=== PATIENT | male | born 1995 | race Caucasian/White ===

== ENCOUNTER 2017-09-28 16:44 | Emergency (ER) | payer OTHER ==
[2017-09-28 16:50] VITALS: BP 141/85
[2017-09-28] MEDS ORDERED: IBUPROFEN 800 MG TABLET. PO ONE (17:30)
[2017-09-28] MEDS ORDERED: IBUP800T19 PO (17:44)
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
== END 2017-09-28 18:05 | disposition home or self-care (01) ==
LOC: ER 16:44
DX: S62.394A Other fracture of fourth metacarpal bone, right hand, initial encounter for closed fracture (principal); S62.326A Displaced fracture of shaft of fifth metacarpal bone, right hand, initial encounter for closed fracture; F17.210 Nicotine dependence, cigarettes, uncomplicated; F12.10 Cannabis abuse, uncomplicated; Z71.6 Tobacco abuse counseling; W22.01XA Walked into wall, initial encounter; Y93.89 Activity, other specified; Y99.8 Other external cause status; Y92.89 Other specified places as the place of occurrence of the external cause
CPT/HCPCS: 29125; 73130; 99284

== ENCOUNTER 2019-04-12 12:11 | Emergency (ER) | payer OTHER ==
[~2019-04-12] VITALS: Ht 177.8 cm; Wt 72.6 kg
[~2019-04-12 12:11] MED LIST: IBUP800T19 PO
[2019-04-12 12:22] VITALS: BP 131/85
[2019-04-12] MEDS ORDERED: TETANUS AND DIPHTHERIA TOX/PF 0.5 ML VIAL. VAX IM ONE (12:30)
[2019-04-12] MEDS ORDERED: NAPR500T8 PO (12:47)
--- NOTE | 2019-04-12 12:48 | PHYS DOC ---
Past History Past Medical History: No Pertinent History Past Surgical History: No Surgical History Smoking: Cigarettes Alcohol Use: Heavy Drug Use: Marijuana Adult General Chief Complaint Chief Complaint: HAND PROBLEM HPI HPI Patient is a 23-year-old male presents today with right hand injury. He states he thinks he punched a wall last night. He states he has some throbbing pain he is able to make a fist but it's painful. He denies any other injuries at this time.[] Review of Systems Review of Systems Constitutional: Denies fever or chills [] Eyes: Denies change in visual acuity, redness, or eye pain [] HENT: Denies nasal congestion or sore throat [] Respiratory: Denies cough or shortness of breath [] Cardiovascular: No additional information not addressed in HPI [] GI: Denies abdominal pain, nausea, vomiting, bloody stools or diarrhea [] : Denies dysuria or hematuria [] Musculoskeletal: Per history of present illness[] Integument: Finger abrasions[] Neurologic: Denies headache, focal weakness or sensory changes [] Endocrine: Denies polyuria or polydipsia [] All other systems were reviewed and found to be within normal limits, except as documented in this note. Current Medications Current Medications Current Medications Medications (Trade) Dose Ordered Sig/Aida Start Time Stop Time Status Last Admin Dose Admin Tetanus/ Diphtheria Toxoids Adsorbed (Tenivac Vial) 0.5 ml ONCE ONCE 04/12/19 12:30 04/12/19 12:31 DC Allergies Allergies Allergies Coded Allergies Type Severity Reaction Last Updated Verified No Known Drug Allergies 09/28/17 No Physical Exam Physical Exam Constitutional: Well developed, well nourished, appears mildly intoxicated. [] HENT: Normocephalic, atraumatic, bilateral external ears normal, oropharynx moist, no oral exudates, nose normal. [] Eyes: PERRLA, EOMI, conjunctiva normal, no discharge. [] Neck: Normal range of motion, no tenderness, supple, no stridor. [] Cardiovascular:Heart rate regular rhythm, no murmur [] Lungs & Thorax: Bilateral breath sounds clear to auscultation [] Abdomen: Bowel sounds normal, soft, no tenderness, no masses, no pulsatile masses. [] Skin: Warm, dry, no erythema, no rash. [] Back: No tenderness, no CVA tenderness. [] Extremities: Right hand has some dorsal swelling no obvious for many no significant ecchymosis MCP joint 3 and 4 have decreased range of motion secondary to pain Neurologic: Alert and oriented X 3, normal motor function, normal sensory fun ction, no focal deficits noted. [] Psychologic: Affect normal, judgement normal, mood normal. [] Current Patient Data Vital Signs Vital Signs Date Time Temp Pulse Resp B/P (MAP) Pulse Ox O2 Delivery O2 Flow Rate FiO2 04/12/19 12:22 98.0 109 16 97 Room Air EKG EKG [] Radiology/Procedures Radiology/Procedures [] Impressions: Right hand x-ray negative exam as interpreted by az Course & Med Decision Making Course & Med Decision Making Pertinent Labs and Imaging studies reviewed. (See chart for details) [] Dragon Disclaimer Dragon Disclaimer This electronic medical record was generated, in whole or in part, using a voice recognition dictation system. Departure Departure: Impression: Primary Impression: Contusion of right hand Disposition: HOME, SELF-CARE Condition: STABLE Referrals: PCP,NO (PCP) Patient Instructions: Hand Contusion Additional Instructions: Return to the emergency department with any new or concerning symptoms Scripts Naproxen (NAPROXEN) 500 Mg Tablet.dr 1 TAB PO Q12HR PRN for PAIN, #60 TAB 1 Refill Prov: TANNA SUMMERS DO 04/12/19 Problem Qualifiers Primary Impression: Contusion of right hand Encounter type: initial encounter Qualified Codes: S60.221A - Contusion of right hand, initial encounter TANNA SUMMERS DO Apr 12, 2019 12:48
--- NOTE | 2019-04-12 12:54 | RAD ---
Exam performed: 3 views right hand HISTORY: Right hand pain status post trauma. DATE OF SERVICE: 04/12/2019. COMPARISON: None available FINDINGS: AP, lateral and oblique views of the right hand are obtained. There is an old healed fracture fifth metacarpal. A minimally displaced fracture ulnar styloid process is seen which appears mildly corticated and may be nonacute. The alignment appears otherwise preserved. No acute fracture is seen, no soft tissue foreign body is identified. IMPRESSION: Old healed fracture fifth metacarpal with a nonacute fracture ulnar styloid process. No acute abnormality seen. Electronically signed by: Corry Stinson MD (04/12/2019 12:51 PM) [facility]
== END 2019-04-12 12:59 | disposition home or self-care (01) ==
LOC: ER 12:11
DX: S60.221A Contusion of right hand, initial encounter (principal); F17.210 Nicotine dependence, cigarettes, uncomplicated; F10.20 Alcohol dependence, uncomplicated; W22.01XA Walked into wall, initial encounter; Y93.89 Activity, other specified; Y92.89 Other specified places as the place of occurrence of the external cause; Y99.8 Other external cause status; Y90.9 Presence of alcohol in blood, level not specified
CPT/HCPCS: 73130; 99284

== ENCOUNTER 2019-11-28 13:05 | Emergency (ER) | payer SELFPAY ==
[~2019-11-28] VITALS: Ht 177.8 cm; Wt 68.2 kg
[~2019-11-28 13:05] MED LIST changes: +NAPR500T8 PO
[2019-11-28 13:20] VITALS: BP 111/65
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
== END 2019-11-28 13:27 | disposition home or self-care (01) ==
LOC: ER 13:05
DX: S01.80XD Unspecified open wound of other part of head, subsequent encounter (principal); X58.XXXD Exposure to other specified factors, subsequent encounter
CPT/HCPCS: 99281

== ENCOUNTER 2020-06-25 13:16 | Emergency (ER) | payer SELFPAY ==
[~2020-06-25] VITALS: Ht 177.8 cm; Wt 68.2 kg
--- NOTE | 2020-06-25 13:59 | PHYS DOC ---
Past History Past Medical History: No Pertinent History Past Surgical History: No Surgical History Smoking: Cigarettes Alcohol Use: Heavy Drug Use: Marijuana Adult General Chief Complaint Chief Complaint: ALTERED MENTAL STATUS [facility] Patient is a 24-year-old male who presents to the emergency room after having an episode of unresponsiveness. According to EMS they were called by his girlfriend who found him unresponsive. He took a Percocet and Ativan to help him sleep. He states he does not typically take these medications. He does not typically use drugs. They state that he was unresponsive and had shallow breathing upon their arrival. They gave him Narcan twice and patient reacted to the second dose of Narcan. He is fully awake now and has no complaints. Review of Systems Review of Systems Complete ROS is negative unless otherwise documented in HPI Allergies Allergies Allergies Coded Allergies Type Severity Reaction Last Updated Verified No Known Drug Allergies 09/28/17 No Physical Exam Physical Exam General: Awake, alert, NAD. Well Nourished, well hydrated. Cooperative HEENT: Atraumatic, EOMI, PERRL, airway patent, moist oral mucosa Neck: Supple, trachea midline Respiratory: CTA bilaterally, normal effort, no wheezing/crackles CV: RRR, no murmur, cap refill <2 GI: Soft, nondistended, nontender, no masses MSK: No obvious deformities Skin: Warm, dry, intact Neuro: A&O x3, speech NL, sensory and motor grossly intact, no focal deficits Psych: Normal affect, normal mood, not suicidal or homicidal Current Patient Data Vital Signs Vital Signs Date Time Temp Pulse Resp B/P (MAP) Pulse Ox O2 Delivery O2 Flow Rate FiO2 06/25/20 13:20 98.1 116 16 146/96 (113) 98 Room Air EKG EKG [] Radiology/Procedures Radiology/Procedures [] Heart Score Risk Factors: Risk Factors: DM, Current or recent (<one month) smoker, HTN, HLP, family history of CAD, obesity. Risk Scores: Risk Factors: DM, Current or recent (<one month) smoker, HTN, HLP, family history of CAD, obesity. Course & Med Decision Making Course & Med Decision Making Pertinent Labs and Imaging studies reviewed. (See chart for details) Patient is a 24-year-old male who presents to the emergency room after an accidental opiate overdose. Patient is awake at this time. He was observed in the emergency room for 2 hours after his Narcan dose and is normal. Patient would like to go home. Discussed signs and symptoms of opiate overdose with him and his girlfriend. Patient's test results and vitals while in the ED were fully reviewed and discussed with the patient. Patient is stable and at this time does not need admission to the hospital. We have discussed strict return precautions and the importance of following up with their Primary Care Physician. Patient stated understanding and was given an opportunity to ask any questions. Patient is in agreement with plan. Dragon Disclaimer Dragon Disclaimer This electronic medical record was generated, in whole or in part, using a voice recognition dictation system. Departure Departure: Impression: Primary Impression: Opiate or related narcotic overdose Disposition: 01 DC HOME SELF CARE/HOMELESS Condition: IMPROVED Referrals: PCP,BENIGNO (PCP) Patient Instructions: Narcotic Overdose KATARINA BAE MD Jun 25, 2020 13:59
[2020-06-25 14:21] VITALS: BP 121/65
== END 2020-06-25 14:57 | disposition home or self-care (01) ==
LOC: ER 13:16
DX: T40.691A Poisoning by other narcotics, accidental (unintentional), initial encounter (principal); T42.4X1A Poisoning by benzodiazepines, accidental (unintentional), initial encounter; F17.210 Nicotine dependence, cigarettes, uncomplicated; F10.20 Alcohol dependence, uncomplicated; Y92.89 Other specified places as the place of occurrence of the external cause; Y90.9 Presence of alcohol in blood, level not specified
CPT/HCPCS: 99283

== ENCOUNTER 2021-04-21 11:31 | Emergency (ER) | payer SELFPAY ==
[~2021-04-21] VITALS: Ht 177.8 cm; Wt 68.2 kg
[2021-04-21 11:46] VITALS: BP 114/81
--- NOTE | 2021-04-21 11:54 | PHYS DOC ---
Past History Past Medical History: No Pertinent History Past Surgical History: No Surgical History Smoking: Cigarettes Alcohol Use: Heavy Drug Use: Marijuana General Adult EDM: Chief Complaint: FLU SYMPTOM HPI: HPI: 25-year-old male presents with cough, congestion, shortness of breath, body aches. He states been having the symptoms for nearly 3 weeks. He is a cigarette smoker. He is not vaccinated against COVID-19. He had a negative Covid test 3 weeks ago. He feels like his shortness of breath and cough might be worse now and he is concerned about pneumonia. He denies fever at home. Review of Systems: Review of Systems: Constitutional: Denies fever or chills Eyes: Denies change in visual acuity HENT: Nasal congestion and sore throat Respiratory: Cough with shortness of breath Cardiovascular: Denies chest pain or edema GI: Denies abdominal pain, nausea, vomiting, bloody stools or diarrhea : Denies dysuria Musculoskeletal: Denies back pain or joint pain Integument: Denies rash Neurologic: Denies headache, focal weakness or sensory changes Endocrine: Denies polyuria or polydipsia Lymphatic: Denies swollen glands Psychiatric: Denies depression or anxiety Allergies: Allergies: Allergies Coded Allergies Type Severity Reaction Last Updated Verified No Known Drug Allergies 09/28/17 No Physical Exam: PE: Constitutional: Well developed, well nourished, no acute distress, non-toxic appearance. [] HENT: Normocephalic, atraumatic, bilateral external ears normal, oropharynx mois t, no oral exudates, nose normal. [] Eyes: PERRLA, EOMI, conjunctiva normal, no discharge. [] Neck: Normal range of motion, no tenderness, supple, no stridor. [] Cardiovascular: Heart rate regular rhythm, no murmur [] Lungs & Thorax: Bilateral breath sounds clear to auscultation [] Abdomen: Bowel sounds normal, soft, no tenderness, no masses, no pulsatile masses. [] Skin: Warm, dry, no erythema, no rash. [] Back: No tenderness, no CVA tenderness. [] Extremities: No tenderness, no cyanosis, no clubbing, ROM intact, no edema. [] Neurologic: Alert and oriented X 3, normal motor function, normal sensory function, no focal deficits noted. [] Psychologic: Affect normal, judgement normal, mood normal. [] EKG: EKG: [] Radiology/Procedures: Radiology/Procedures: [] Impressions: EXAM: Chest, single view. HISTORY: Shortness of breath. COMPARISON: None. FINDINGS: A frontal view of the chest is obtained. There is no infiltrate, pleural effusion or pneumothorax. The heart is normal in size. There is a suspected granuloma or scarring at the right lung base. IMPRESSION: No acute pulmonary finding. Electronically signed by: Eri Dumont MD (04/21/2021 11:58 AM) [facility] DICTATED AND SIGNED BY: ERI DUMONT MD DATE: 04/21/21 [id number] CC: TRUNG LEAL DO; PCP,NO ~MTH0 0 Heart Score: C/O Chest Pain: N/A Risk Factors: Risk Factors: DM, Current or recent (<one month) smoker, HTN, HLP, family history of CAD, obesity. Risk Scores: Score 0 - 3: 2.5% MACE over next 6 weeks - Discharge Home Score 4 - 6: 20.3% MACE over next 6 weeks - Admit for Clinical Observation Score 7 - 10: 72.7% MACE over next 6 weeks - Early Invasive Strategies Course & Med Decision Making: Course & Med Decision Making Pertinent Labs and Imaging studies reviewed. (See chart for details) The patient's chest x-ray is negative for acute findings. The patient does not want to wait for all of his results. His flu and COVID-19 are pending at this time. I believe this is reasonable. He is stable for discharge at this time. My most likely suspicion is COVID-19. [] Nataliia Disclaimer: Nataliia Disclaimer: This electronic medical record was generated, in whole or in part, using a voice recognition dictation system. Departure Departure: Impression: Primary Impression: Suspected 2019 novel coronavirus infection Disposition: HOME / SELF CARE / HOMELESS Condition: STABLE Referrals: PCP,NO (PCP) Additional Instructions: You have been tested for or diagnosed with COVID-19. It is an infection caused by a new type of coronavirus. COVID-19 will cause cold-like or mild flu symptoms in most. It can cause more severe symptoms like problems breathing in some. There is no treatment for COVID-19. The body will clear the infection over time. Self-care will help to ease discomfort. Steps to Take: Self-Care Rest as needed. Healthy habits may help you feel better. Steps include: Choose healthy foods including fruits and vegetables. Drink water throughout the day. Get plenty of sleep each night. If you smoke, try to quit. It may ease breathing. Avoid alcohol. Keep Others Healthy The virus can spread to others. Droplets are released every time you sneeze or cough. The droplets can get into the mouth, nose, or eyes of people near you and lead to infection. To lower the chances of spreading COVID-19 to others: Stay at home until your doctor has said it is safe to leave. If you tested positive this will mean staying isolated until both of the following are true: At least 7 days have passed since the start of illness. You are free of fever for at least 72 hours without the use of medicine. During this time: - Avoid public areas, events, or transportation. Do not return to work or school until your doctor has said it is safe to do so. - Call ahead if you need to go to a medical center. Let them know you may have COVID-19. It will help them guide you where to go. They may also ask you to wear a facemask when you come to the office. - If you call for emergency medical services, let them know you may have COVID- 19. While at home: - Try to avoid close contact with others. Stay about 6 feet away. - If possible, spend most of your time in a separate room from others. - Use a face mask if you will be in close contact with others such as sharing a room or vehicle. - Have someone wipe down common surfaces in the home. Use household asphalt tamper every day on areas like doorknobs, counters, or sinks. - Cough or sneeze into a tissue. Throw the tissue away right after use. If a tissue is not available, cough or sneeze into your elbow. - Wash your hands often. Wash them after sneezing or coughing. Use soap and water and wash for at least 20 seconds. Alcohol based hand flask cleaner can be used if soap and water is not available. - Do not prepare food for others. Avoid sharing personal items like forks, spoons, or toothbrushes. - Avoid close contact with pets while you are sick. There is no evidence of the virus passing to pets. This is a safety step until more is known about this virus. Isolation can be frustrating. Social interaction can help. Keep in touch with friends and family through phone and tech options. You can still interact with others in your home, just keep a safe distance of about 6 feet. Follow-up: Your doctors office will check in with you to see if there are any changes in your health. You may be asked to keep track of symptoms to share with them. They will also let you know when you are clear to be in public again. Problems to Look Out For: Contact your doctor if your recovery is not going as you expect. Get emergency care if you have problems such as: - Trouble breathing - Nonstop chest pain or pressure - Changes in awareness, confusion, or problems waking - Lips or face have bluish color - Worsening of symptoms If you think you have an emergency, call for emergency medical services right away. As taken from Replaced by [facility] TRUNG LEAL DO Apr 21, 2021 11:54
--- NOTE | 2021-04-21 12:00 | RAD ---
EXAM: Chest, single view. HISTORY: Shortness of breath. COMPARISON: None. FINDINGS: A frontal view of the chest is obtained. There is no infiltrate, pleural effusion or pneumo thorax. The heart is normal in size. There is a suspected granuloma or scarring at the right lung bas e. IMPRESSION: No acute pulmonary finding. Electronically signed by: Eri Dumont MD (04/21/2021 11:58 AM) [facility]
[2021-04-21 12:43] LABS: INFLUENZA A PATIENT NEGATIVE (NEGATIVE); INFLUENZA B PATIENT NEGATIVE (NEGATIVE)
== END 2021-04-21 12:50 | disposition home or self-care (01) ==
LOC: ER 11:31
DX: R05.9 Cough, unspecified (principal); R09.81 Nasal congestion; R06.02 Shortness of breath; F17.210 Nicotine dependence, cigarettes, uncomplicated; F10.20 Alcohol dependence, uncomplicated; Z20.822 Contact with and (suspected) exposure to COVID-19; Y90.9 Presence of alcohol in blood, level not specified
CPT/HCPCS: 71045; 87804; 99284; C9803; U0003